=== PATIENT | male | born 1975 ===

== ENCOUNTER 2016-12-24 21:09 | Emergency (ER) | payer BC ==
[2016-12-24] MEDS ORDERED: FLUORESCEIN STRIP 1 MG/STRIP STRIP ONE (21:40)
--- NOTE | 2016-12-24 21:43 | ER NURSING DOCUMENTATION ---
Nurse's Notes [facility] Name:Rusty Penaloza Age:41 yrs Sex:Male :1975 Arrival Date:12/24/2016 Time:21:09 Bed2 Private MD: Diagnosis:Conjunctival Foreign Body-: OD, removed Presentation: 12/24 21:13 Acuity: MICHAEL 4 rh 21:20 Presenting complaint: Patient states: Pt has foreign body under the right eye lid, no rh vision changes. feels like grain of sand. Transition of care: Home. 21:20 Method Of Arrival: Private Vehicle rh Triage Assessment: 21:21 General: Appears in no apparent distress, Behavior is cooperative. Pain: Denies pain. rh EENT: Eyes Pt reports foreign body under the right eye lid - sand grain like . Historical: - Allergies: No known drug Allergies; - Home Meds: 1. None - PMHx: None; - PSHx: None; - Tetanus: < 10 years. - Ebola Screening: : Patient negative for fever greater than or equal to 101.5 degrees Fahrenheit, and additional compatible Ebola Virus Disease symptoms. - Immunization history: Flu Vaccine < 1 year. - Social history: Smoking status: Patient states was never smoker of tobacco. Screenin:21 Infectious Disease Risk None. Abuse screen: Denies threats or abuse. Denies injuries rh from another. Nutritional screening: No deficits noted. Assessment: 21:21 See Triage Assessment done by same RN. rh Vital Signs: 21:14 BP 129 / 84 LA Sitting (auto/reg); Pulse 72 RA; Resp 16 S; Temp 97.9(O); Pulse Ox 97% em3 on R/A; Weight 54.43 kg (R); Height 5 ft. 3 in. (160.02 cm) (R); Pain 0/10; 21:14 Body Mass Index 21.26 (54.43 kg, 160.02 cm) em3 ED Course: 21:12 Patient arrived in ED. ama 21:13 Triage completed. rh 21:16 Luis Carlos Mays MD is Attending Physician. cd 21:16 Valuables Remains with patient Patient has correct armband on for positive em3 identification. Bed in low position. Call light in reach. 21:20 Amanda Bhandari is Primary Nurse. rh Administered Medications: No medications were administered Outcome: 21:38 Discharge ordered by . felisha 21:42 Discharged to home ambulatory. 21:42 Condition: improved 21:42 Discharge Assessment: Patient awake, alert and oriented x 3. No cognitive and/or functional deficits noted. Patient verbalized understanding of disposition instructions. 21:42 Discharge instructions given to patient, Instructed on discharge instructions, follow up and referral plans. Demonstrated understanding of instructions. 21:42 Patient left the ED. 12/25 12:36 Discharge F/U Call: Unable to reach: Spoke with: other: Name: pt is not home. Person st answering phone does not speak much [employer]. Signatures: Joi Alan, Luis Carlos Hoskins RN, MD MD cd Meiklejohn, Eric em3 Averdick, Andrew, Reg Reg ama Hofsess, Rachel
--- NOTE | 2016-12-24 21:43 | ER PHYSICIAN DOCUMENTATION ---
Physician Documentation [facility] Name:Rusty Penaloza Age:41 yrs Sex:Male :1975 Arrival Date:12/24/2016 Time:21:09 Bed2 Private MD: Luis Carlos Deluna Disposition: 12/24/16 21:38 Discharged to Home/Self Care. Impression: Conjunctival Foreign Body - : OD, removed. - Condition is Good. - Discharge Instructions: CONJUNCTIVAL FOREIGN BODY, Resolved. - Medical Reconciliation form form. - Follow up: Private Physician; When: 7 - 10 days; Reason: Recheck today's complaints, Continuance of care. - Problem is new. - Symptoms are resolved. - Notes: Natural Tears OTC throughout each day. HPI: 12/24 21:15 This 41 yrs old Unknown Male presents to ER via Private Vehicle with complaints of cd Foreign Body In Eye - RIGHT. 21:15 The patient is experiencing foreign body sensation, to the right eye, caused by an cd unknown mechanism. Onset: The symptom(s)/episode began/occurred acutely, today. Duration: the symptoms are continuous. Associated signs and symptoms:. Severity of symptoms: At their worst the symptoms were mild in the emergency department the symptoms are unchanged. Historical: - Allergies: No known drug Allergies; - Home Meds: 1. None - PMHx: None; - PSHx: None; - Tetanus: < 10 years. - Ebola Screening: : Patient negative for fever greater than or equal to 101.5 degrees Fahrenheit, and additional compatible Ebola Virus Disease symptoms. - Immunization history: Flu Vaccine < 1 year. - Social history: Smoking status: Patient states was never smoker of tobacco. ROS: 21:22 Constitutional: Negative for fever, chills, rigors and weight loss. cd 21:22 ENT: Negative for injury, pain, epistaxis and discharge. cd 21:22 Eyes: Positive for foreign body sensation, Negative for blurry vision, itching, pain, photophobia, visual disturbance, vision loss. Exam: 21:22 Visual Acuity: I have reviewed the nursing documentation. cd 21:22 ENT: Nares patent. No nasal discharge, no septal abnormalities noted. Tympanic membranes are normal and external auditory canals are clear. Oropharynx with no redness, swelling, or masses, exudates, or evidence of obstruction, uvula midline. Mucous membranes moist. 21:22 Constitutional: The patient appears alert, awake, anxious. 21:22 Eyes: Periorbital structures: appear normal, Pupils: equal, round, and reactive to light and accomodation, Extraocular movements: intact throughout, Conjunctiva: injected, in the right eye, small FB found and removed, patient feels much better. Corneas: are normal, no evidence of abrasion, a fluorescein strip employed to appreciate the findings. Vital Signs: 21:14 BP 129 / 84 LA Sitting (auto/reg); Pulse 72 RA; Resp 16 S; Temp 97.9(O); Pulse Ox 97% em3 on R/A; Weight 54.43 kg (R); Height 5 ft. 3 in. (160.02 cm) (R); Pain 0/10; 21:14 Body Mass Index 21.26 (54.43 kg, 160.02 cm) em3 Procedures: 21:15 Foreign Body Removal: dirt, from the right eye, conjunctiva by using a cotton-tipped cd swab, The patient tolerated the removal well. MDM: 21:16 Patient medically screened. cd 21:30 Data reviewed: vital signs, nurses notes, old medical records, and as a result, I will cd discharge patient. 21:30 Counseling: I had a detailed discussion with the patient and/or guardian regarding: the cd historical points, exam findings, and any diagnostic results supporting the discharge/admit diagnosis, the need for outpatient follow up, for a recheck, with the patient's primary care provider, to return to the emergency department if symptoms worsen or persist or if there are any questions or concerns that arise at home. Dispensed Medications: No medications were administered Signatures: Luis Carlos Mays MD MD Amanda Bhandari
== END 2016-12-24 21:43 | disposition home or self-care (01) ==
LOC: ER 21:09
DX: T15.11XA Foreign body in conjunctival sac, right eye, initial encounter (principal)
CPT/HCPCS: 65205; 99281